=== PATIENT | female | born 1985 | race Asian ===

== ENCOUNTER 2018-12-15 08:50 | Emergency (ER) | payer MEDICAID ==
[~2018-12-15] VITALS: Ht 162.6 cm; Wt 140.0 kg
[2018-12-15] MEDS ORDERED: dicyclomine 10 MG capsule PO ONE (09:15)
[2018-12-15] MEDS ORDERED: acetaminophen 325mg tablet PO ONE (09:15)
[2018-12-15] MEDS ORDERED: ondansetron 4mg rapidly disintigrating tab PO ONE (09:15)
[2018-12-15 09:29] LABS: BASOPHILS # (AUTO) 0.1 X10'3 (0-0.2); BASOPHILS % (AUTO) 0.9 % (0-1); EOSINOPHILS # (AUTO) 1.1 X10'3 (0-0.9); EOSINOPHILS % (AUTO) 11.7 % (0-6); LYMPHOCYTES # (AUTO) 2.5 X10'3 (1.1-4.8); LYMPHOCYTES % (AUTO) 25.9 % (21-51); MEAN CORPUSCULAR HGB CONC 33.4 g/dL (33.0-36.5); MEAN CORPUSCULAR VOLUME 77.7 FL (78-98); MEAN PLATELET VOLUME 8.9 FL (7.4-10.4); MONOCYTES # (AUTO) 0.4 X10'3 (0-0.9); MONOCYTES % (AUTO) 4.2 % (2-12); NEUTROPHILS # (AUTO) 5.6 X10'3 (1.8-7.7); NEUTROPHILS % (AUTO) 57.3 % (42-75); PLATELET COUNT 262 X10'3 (140-440); RED BLOOD COUNT 5.02 X10'6 (4.20-5.60); RED CELL DISTRIBUTION WIDTH 12.7 % (11.5-14.5); WHITE BLOOD COUNT 9.8 X10'3 (4.5-11.0)
[2018-12-15 09:41] LABS: ALANINE AMINOTRANSFERASE 29 U/L (12-78); ALBUMIN 3.6 G/DL (3.4-5.0); ALBUMIN/GLOBULIN RATIO 0.7 (1.1-1.5); ALKALINE PHOSPHATASE 46 IU/L (46-116); ANION GAP 9 (8-16); ASPARTATE AMINO TRANSFERASE 21 U/L (10-37); BILIRUBIN,TOTAL 0.4 MG/DL (0.1-1.0); BLOOD UREA NITROGEN 10 MG/DL (7-18); BUN/CREATININE RATIO 10.5 (6.6-38.0); CALCIUM 9.1 MG/DL (8.5-10.1); CHLORIDE 102 MMOL/L (99-107); CREATININE 0.95 MG/DL (0.40-0.90); GLUCOSE 84 MG/DL (70-104); LIPASE 130 U/L (73-393); POTASSIUM 3.7 MMOL/L (3.5-5.1); SODIUM 137 MMOL/L (135-145); TOTAL CARBON DIOXIDE 25.6 MMOL/L (24-32); TOTAL PROTEIN 8.6 G/DL (6.4-8.2); eGFR 68 ML/MIN
[2018-12-15 09:46] LABS: URINE HCG NEGATIVE (NEG)
[2018-12-15 09:56] LABS: CLARITY,URINE CLEAR (Clear); COLOR,URINE YELLOW (Yellow); GLUCOSE, URINE NEGATIVE (Neg); KETONES,URINE NEGATIVE (Neg); NITRITES, URINE NEGATIVE (Neg); OCCULT BLOOD,URINE MODERATE (Neg); PROTEIN,URINE TRACE mg/dl (Neg); UA COLLECTION TYPE CLN CATCH MIDSTREAM; UROBILINOGEN,URINE 0.2 E.U/dL (0.2-1.0)
[2018-12-15 09:57] LABS: LEUKOCYTE ESTERASE ,URINE NEGATIVE (Neg)
[2018-12-15 09:59] LABS: BACTERIA,URINE FEW /HPF (Neg); RBC,URINE 0-2 /HPF (0-2); SQUAMOUS EPITHELIAL CELL,UR MODERATE /LPF (FEW); WBC,URINE 0-4 /HPF (0-4)
[2018-12-15] MEDS ORDERED: ACET-2615 PO (10:15)
[2018-12-15] MEDS ORDERED: LOPE2CAP PO (10:15)
[2018-12-15] MEDS ORDERED: ONDA8TAB6 PO (10:15)
[2018-12-15 10:35] VITALS: BP 147/103
== END 2018-12-15 10:36 | disposition home or self-care (01) ==
LOC: ER 08:51
DX: R10.33 Periumbilical pain (principal); R10.84 Generalized abdominal pain; R11.2 Nausea with vomiting, unspecified; R19.7 Diarrhea, unspecified; M54.5 Low back pain
CPT/HCPCS: 36415; 80053; 81001; 81025; 83690; 85025; 85610; 99284

== ENCOUNTER 2019-08-31 17:17 | Emergency (ER) | payer MEDICAID ==
[~2019-08-31] VITALS: Ht 160 cm; Wt 68.0 kg
[~2019-08-31 17:17] MED LIST: LOPE2CAP PO; ONDA8TAB6 PO
[2019-08-31 17:39] VITALS: BP 174/94
[2019-08-31 18:32] LABS: BASOPHILS # (AUTO) 0.1 X10'3 (0-0.2); BASOPHILS % (AUTO) 0.9 % (0-1); EOSINOPHILS % (AUTO) 23.8 % (0-6); HEMATOCRIT 36.9 % (35.0-45.0); HEMOGLOBIN 12.2 g/dl (12.0-16.0); LYMPHOCYTES # (AUTO) 2.7 X10'3 (1.1-4.8); LYMPHOCYTES % (AUTO) 21.2 % (21-51); MEAN CORPUSCULAR HEMOGLOBIN 26.3 PG (27.0-31.0); MEAN CORPUSCULAR HGB CONC 33.2 g/dL (33.0-36.5); MEAN CORPUSCULAR VOLUME 79.2 FL (78-98); MONOCYTES # (AUTO) 0.6 X10'3 (0-0.9); MONOCYTES % (AUTO) 4.4 % (2-12); NEUTROPHILS # (AUTO) 6.4 X10'3 (1.8-7.7); NEUTROPHILS % (AUTO) 49.7 % (42-75); PLATELET COUNT 312 X10'3 (140-440); RED BLOOD COUNT 4.66 X10'6 (4.20-5.60); RED CELL DISTRIBUTION WIDTH 11.8 % (11.5-14.5); WHITE BLOOD COUNT 12.8 X10'3 (4.5-11.0)
[2019-08-31 18:42] LABS: ALANINE AMINOTRANSFERASE 24 U/L (12-78); ALBUMIN 3.6 G/DL (3.4-5.0); ALBUMIN/GLOBULIN RATIO 0.7 (1.1-1.5); ALKALINE PHOSPHATASE 52 IU/L (46-116); ANION GAP 9 (8-16); ASPARTATE AMINO TRANSFERASE 20 U/L (10-37); BILIRUBIN,TOTAL 0.2 MG/DL (0.1-1.0); BLOOD UREA NITROGEN 10 MG/DL (7-18); BUN/CREATININE RATIO 10.8 (6.6-38.0); CALCIUM 8.8 MG/DL (8.5-10.1); CHLORIDE 104 MMOL/L (99-107); CREATININE 0.93 MG/DL (0.40-0.90); GLUCOSE 81 MG/DL (70-104); POTASSIUM 3.2 MMOL/L (3.5-5.1); SODIUM 139 MMOL/L (135-145); TOTAL CARBON DIOXIDE 25.8 MMOL/L (24-32); TOTAL PROTEIN 8.6 G/DL (6.4-8.2); eGFR 69 ML/MIN
[2019-08-31] MEDS ORDERED: AZIT250T83 PO (19:04)
[2019-08-31 21:38] LABS: PLATELET ESTIMATE NORMAL; TOTAL CELLS COUNTED 100
[2019-08-31 21:39] LABS: MICROCYTOSIS 1+; STOMATOCYTES FEW
[2019-08-31 21:40] LABS: LARGE PLATELETS FEW
== END 2019-08-31 19:27 | disposition home or self-care (01) ==
LOC: ER 17:18
DX: J18.9 Pneumonia, unspecified organism (principal); Z72.89 Other problems related to lifestyle
CPT/HCPCS: 36415; 71046; 80053; 85025; 99284

== ENCOUNTER 2022-10-27 12:56 | Emergency (ER) | payer MEDICAID ==
[~2022-10-27] VITALS: Ht 162.6 cm; Wt 68.0 kg
[2022-10-27 12:59] VITALS: BP 141/105
[2022-10-27] MEDS ORDERED: ipratropium/albuterol 3ml nebule NEB PRN (13:50)
[2022-10-27] MEDS ORDERED: ipratropium/albuterol 3ml nebule IH ONE (14:35)
--- NOTE | 2022-10-27 15:02 | NUR ---
RT AT BS
--- NOTE | 2022-10-27 15:03 | NUR ---
PT c/o cough swollen glands, barking cough, upper aw stridor noted, BS lung clear. MD notified of concerns, neb tx given.
[2022-10-27] MEDS ORDERED: dexamethasone sod phosphate 10mg/ml inj PO STA (15:28)
[2022-10-27] MEDS ORDERED: HYDR-3686 PO (15:29)
== END 2022-10-27 16:16 | disposition home or self-care (01) ==
LOC: ER 12:56
DX: J06.9 Acute upper respiratory infection, unspecified (principal); Z20.822 Contact with and (suspected) exposure to COVID-19; I10 Essential (primary) hypertension; Z79.899 Other long term (current) drug therapy
CPT/HCPCS: 70360; 87502; 87503; 87635; 94640; 99284; C9803; J1100

== ENCOUNTER 2023-09-29 08:12 | Emergency (ER) | payer MEDICAID ==
[~2023-09-29] VITALS: Ht 165.1 cm; Wt 67.0 kg
[2023-09-29 08:24] VITALS: BP 122/86; PULSE 102; RESP 16; TEMP 98.5; O2SAT 96
[2023-09-29] MEDS ORDERED: dexamethasone sod phosphate 10mg/ml inj PO STA (09:37)
[2023-09-29] MEDS ORDERED: DOXY-1 PO (09:39)
== END 2023-09-29 09:58 | disposition home or self-care (01) ==
LOC: ER 08:13
DX: J02.9 Acute pharyngitis, unspecified (principal); R59.0 Localized enlarged lymph nodes; I10 Essential (primary) hypertension; Z72.89 Other problems related to lifestyle; Z79.899 Other long term (current) drug therapy
CPT/HCPCS: 99283; J1100

== ENCOUNTER 2025-01-23 11:17 | Emergency (ER) | payer MEDICAID ==
[~2025-01-23] VITALS: Ht 162.6 cm; Wt 70.3 kg
[2025-01-23 11:25] VITALS: BP 132/95; PULSE 89; RESP 16; O2SAT 98
[2025-01-23] MEDS: dexamethasone sod phosphate 10mg/ml inj PO STA (12:28)
[2025-01-23] MEDS ORDERED: PRED10TA23 PO (12:29)
[2025-01-23 12:41] VITALS: TEMP 97.8
== END 2025-01-23 12:43 | disposition home or self-care (01) ==
LOC: ER 11:17
DX: J02.9 Acute pharyngitis, unspecified (principal); I10 Essential (primary) hypertension
CPT/HCPCS: 99283; J1100